=== PATIENT | male | born 1965 | race Caucasian/White ===

== ENCOUNTER 2020-05-07 08:42 | Outpatient (CLI) | payer BC, SELFPAY ==
[2020-05-07 09:35] LABS: Alanine Aminotransferase 57 U/L (0-41); Chol HDL Ratio 3.85 mg/dL (1.0-5.00); Cholesterol 150 mg/dL (0-200); HDL Cholesterol 39 mg/dL (60-100); LDL Cholesterol Calculated 78 mg/dL (50-129); Triglycerides 167 mg/dL (0-150)
[2020-05-07 09:45] LABS: Testosterone Total 759.8 ng/dL (193-740)
== END 2020-05-07 08:43 | disposition home or self-care (01) ==
LOC: LAB 08:47
PROVIDERS: PCP Internal Medicine; Visit Provider Internal Medicine
DX: E29.1 Testicular hypofunction (principal)
CPT/HCPCS: 80061; 84403; 84460

== ENCOUNTER 2021-02-25 15:09 | Outpatient (CLI) | payer BC, SELFPAY ==
--- NOTE | 2021-02-25 15:45 | US_ITS ---
WS: [id number] SCROTAL ULTRASOUND EXAMINATION CLINICAL INFORMATION: N50.812 - Left testicular pain COMPARISON: None. FINDINGS: TESTES Normal in size and echotexture. 2 tiny echogenic foci left testicle consistent with microcalcificatio ns. Color Doppler: Normal color Doppler flow pattern. Right testes size: 3.0 cm x 2.2 cm x 1.8 cm. Left testes size: 3.6 cm x 2.1 cm x 2.1 cm. EPIDIDYMIDES Normal in size and echotexture, without focal lesion. Color Doppler: Normal color Doppler flow pattern. Right epididymis size: 1.3 cm x cm x cm. Left epididymitis size: 0.7 cm x cm x cm. HYDROCELE None. VARICOCELE None. OTHER FINDINGS None. US/US scrotum [id number] IMPRESSION: Normal testicular ultrasound
== END 2021-02-25 15:10 | disposition home or self-care (01) ==
LOC: RAD 15:12
PROVIDERS: PCP Internal Medicine; Visit Provider Internal Medicine
DX: N50.812 Left testicular pain (principal)
CPT/HCPCS: 76870

== ENCOUNTER → 2021-03-09 07:42 | Outpatient (BNVA) | payer BC, SELFPAY | PROVIDERS: PCP Internal Medicine; Visit Provider Urology | DX: N50.812 Left testicular pain (principal) | CPT/HCPCS: 81003 ==

== ENCOUNTER → 2021-10-20 14:54 | Outpatient (BNVA) | payer BC, SELFPAY | PROVIDERS: PCP Internal Medicine; Visit Provider Internal Medicine | DX: R79.89 Other specified abnormal findings of blood chemistry (principal) | CPT/HCPCS: 84403 ==

== ENCOUNTER 2025-01-31 13:20 | Outpatient (CLI) | payer OTHER, SELFPAY ==
--- NOTE | 2025-01-31 13:29 | MR_ITS ---
WS: [id number] MRI LUMBAR SPINE NONCONTRAST HISTORY: LUMBOSACRAL RADICULOPATHY COMPARISON: None available. TECHNIQUE: Sagittal and axial multisequence imaging is submitted. Degenerative cervical disc disease at C5-6 and C6-7 and with mild encroachment upon the central cervical canal. Normal lumbar alignment with no compression fractures or marrow edema. Disc spaces and vertebral body heights are well-preserved. Conus terminates normally at L1-2 disc level. L1-L2: Normal. L2-L3: Mild bilateral facet joint arthropathy. No significant stenosis. L3-L4: Mild annular disc bulging with moderate ligamentum flavum and facet arthritis. Disc encroachment upon the traversing L4 nerve roots in the subarticular recesses. Shallow LEFT foraminal disc protrusion. Moderate LEFT foraminal stenosis with contact on the exiting LEFT L3 nerve root. Mild RIGHT fo raminal stenosis. L4-L5: Mild annular disc bulging with moderate ligamentum flavum and facet arthritis. Mild disc encroachment upon the traversing L5 nerve roots in the subarticular recesses. Moderate LEFT foraminal stenosis with disc contacting the exiting LEFT L4 nerve root. Mild RIGHT foraminal stenosis. L5-S1: Mild annular disc bulging. Bilateral facet joint arthritis. Minimal foraminal narrowing. Paravertebral soft tissues are negative. MR/MR lumbar spine wo con* [id number] IMPRESSION: 1. L3-4: Disc encroachment upon the traversing L4 nerve roots in the subarticu lar recesses. Shallow LEFT foraminal disc protrusion. Moderate LEFT foraminal s tenosis with additional contact on the exiting LEFT L3 nerve root. Mild RIGHT f oraminal stenosis. 2. L4-5: Moderate LEFT foraminal stenosis with disc contacting the exiting LEF T L4 nerve root. Mild RIGHT foraminal stenosis. Mild central stenosis with disc encroaching upon the traversing L5 nerve roots. 3. L5-S1: Minimal foraminal narrowing. 4. Facet joint arthropathy from L2-3 through L5-S1.
== END 2025-01-31 13:21 | disposition home or self-care (01) ==
PROVIDERS: PCP Internal Medicine; Visit Provider Internal Medicine
DX: M54.17 Radiculopathy, lumbosacral region (principal); R93.7 Abnormal findings on diagnostic imaging of other parts of musculoskeletal system; M48.061 Spinal stenosis, lumbar region without neurogenic claudication; M47.896 Other spondylosis, lumbar region; M47.897 Other spondylosis, lumbosacral region; M50.322 Other cervical disc degeneration at C5-C6 level; M50.323 Other cervical disc degeneration at C6-C7 level; M51.369 Other intervertebral disc degeneration, lumbar region without mention of lumbar back pain or lower extremity pain; M24.28 Disorder of ligament, vertebrae; M51.379 Other intervertebral disc degeneration, lumbosacral region without mention of lumbar back pain or lower extremity pain
CPT/HCPCS: 72148